=== PATIENT | male | born 1950 | race African-American/Black ===

== ENCOUNTER 2019-11-14 08:38 | Outpatient (CLI) | payer MEDICARE ==
--- NOTE | 2019-11-14 10:59 | RAD ---
RIGHT SHOULDER 3 VIEWS: Date: 11/14/2019 HISTORY: Injury from a fall. FINDINGS: Postsurgical anchors in the right humerus. 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 Arthrosis and degenerative change. IMPRESSION: 1. Osteoarthrosis and degenerative change without acute fracture or dislocation. 2. Postoperative changes with anchors in the greater tuberosity. POS: [facility]
== END 2019-11-14 08:39 | disposition home or self-care (01) ==
LOC: NAV RAD 08:38
PROVIDERS: ATTEND Internal Medicine
DX: M25.511 Pain in right shoulder (principal); I11.9 Hypertensive heart disease without heart failure; M19.011 Primary osteoarthritis, right shoulder; Z98.890 Other specified postprocedural states